=== PATIENT | male | born 1940 | race Caucasian/White ===

== ENCOUNTER 2021-04-22 10:50 | Outpatient (CLI) | payer MEDICARE, OTHER | END 2021-04-22 10:51 | disposition home or self-care (01) | LOC: CSHRAD 10:50 | PROVIDERS: ATTEND Urology | DX: Z00.00 Encounter for general adult medical examination without abnormal findings (principal); Z87.448 Personal history of other diseases of urinary system | CPT/HCPCS: 74018 ==

== ENCOUNTER 2022-10-21 13:04 | Outpatient (CLI) | payer MEDICARE | END 2022-10-21 13:05 | disposition home or self-care (01) | LOC: CSHULT 13:04 | PROVIDERS: ATTEND Urology | DX: N20.0 Calculus of kidney (principal); N40.1 Benign prostatic hyperplasia with lower urinary tract symptoms; N28.1 Cyst of kidney, acquired | CPT/HCPCS: 74018; 76770 ==

== ENCOUNTER 2023-04-05 15:32 | Emergency (ER) | payer MEDICARE | END 2023-04-05 17:36 | disposition home or self-care (01) | LOC: CSHERS 15:32 | DX: I85.01 Esophageal varices with bleeding (principal); N50.89 Other specified disorders of the male genital organs; I48.91 Unspecified atrial fibrillation; E11.9 Type 2 diabetes mellitus without complications; K21.9 Gastro-esophageal reflux disease without esophagitis; E78.5 Hyperlipidemia, unspecified; I10 Essential (primary) hypertension; Z79.01 Long term (current) use of anticoagulants | CPT/HCPCS: 99284 ==

== ENCOUNTER 2023-04-30 09:55 | Emergency (ER) | payer MEDICARE ==
[2023-04-30 11:07] LABS: Bilirubin Neg (Negative); Blood, Urine 25 (Negative); Clarity Clear (Clear); Glucose, Urine (Dipstick) Normal (Negative); Ketone, Urine Negative (Negative); Leukocyte Negative (Negative); Nitrite Negative (Negative); Protein, Urine (Dipstick) 30 mg/dl (Neg-Trace); Urobilinogen Normal mg/dL (Less than 2); pH, Urine 6.5 (5.0-9.0)
[2023-04-30 11:19] LABS: #Basophils 0.1 10x3/uL (0.0-0.2); #Eosinphils 0.2 10x3/uL (0.0-0.5); #Monocytes 0.7 10x3/uL (0.0-1.1); #Neutrophils 5.7 10x3/uL (1.5-8.4); %Basophils 0.8 % (0.0-2.0); %Eosinophils 2.9 % (0.0-6.0); %Monocytes 9.2 % (0.0-10.0); %Neutrophils 71.8 % (40.0-75.0); Hematocrit 45.1 % (38.8-50.0); Hemoglobin 14.5 g/dL (13.5-17.5); Mean Corpuscular HGB CONC 32.2 g/dL (32.0-36.0); Mean Corpuscular Hemoglobin 28.7 pg (27.0-33.0); Mean Corpuscular Volume 89.3 fl (81.2-95.1); Mean Platelet Volume 11.4 fl (7.4-10.4); Platelet Count 207 10x3/uL (150-450); RBC Distribution Width 14.6 % (11.5-14.5); Red Blood Cell (RBC) Count 5.05 10x6/uL (4.32-5.72); White Blood Cell (WBC) Count 7.9 10x3/uL (3.5-10.5)
[2023-04-30 11:32] LABS: CAUTI Indications for Culture Dysuria,urgency,freq; RBC/HPF 0-3 HPF (0-3); WBC/HPF 0-3 HPF (0-3)
[2023-04-30 11:33] LABS: Bacteria/HPF None Seen HPF (None Seen); Squamous Epithelial None Seen HPF (0-3); Urine Culture Reflex No No
[2023-04-30 11:55] LABS: ALT (SGPT) 21 U/L (8-55); AST (SGOT) 22 U/L (5-34); Albumin 4.6 g/dL (3.4-4.8); Alkaline Phosphatase 59 U/L (40-110); Anion Gap 16 mmol/L (10-20); BUN (Urea Nitrogen) 11 mg/dL (8.4-25.7); Bilirubin, Total 1.3 mg/dL (0.2-1.2); Calc. Creatinine Clearance 0 mL/min (70-130); Calcium 9.9 mg/dL (7.8-10.44); Carbon Dioxide 24 mmol/L (23-31); Chloride 101 mmol/L (98-107); Estimated GFR 85; Globulin 2.8 g/dL (2.4-3.5); Glucose 130 mg/dL (83-110); Magnesium 1.9 mg/dL (1.6-2.6); Potassium 3.8 mmol/L (3.5-5.1); Protein, Total 7.4 g/dL (5.8-8.1); Sodium 137 mmol/L (136-145)
== END 2023-04-30 13:24 | disposition home or self-care (01) ==
LOC: CSHERS 09:55
DX: S70.01XA Contusion of right hip, initial encounter (principal); S80.02XA Contusion of left knee, initial encounter; R53.1 Weakness; I48.91 Unspecified atrial fibrillation; E11.9 Type 2 diabetes mellitus without complications; I10 Essential (primary) hypertension; W19.XXXA Unspecified fall, initial encounter
CPT/HCPCS: 72192; 80053; 81001; 83735; 85025

== ENCOUNTER 2024-05-28 13:50 | Emergency (ER) | payer MEDICARE ==
[2024-05-28] MEDS ORDERED: Dexamethasone 10 MG/ML VIAL ONE (14:25)
[2024-05-28] MEDS ORDERED: Lidocaine 4% Patch ONE (14:53)
[2024-05-28] MEDS ORDERED: Morphine 4 MG/ML VIAL ONE (16:25)
== END 2024-05-28 19:11 | disposition home or self-care (01) ==
LOC: CSHERS 13:50
DX: M48.061 Spinal stenosis, lumbar region without neurogenic claudication (principal); I48.91 Unspecified atrial fibrillation; E11.9 Type 2 diabetes mellitus without complications; K21.9 Gastro-esophageal reflux disease without esophagitis; I10 Essential (primary) hypertension
CPT/HCPCS: 72146; 72148; 96374; 99284; J1100; J2272

== ENCOUNTER 2025-07-27 18:51 | Emergency (ER) | payer MEDICARE ==
[2025-07-27 20:22] LABS: ALT (SGPT) 13 U/L (Less than 45); AST (SGOT) 16 U/L (11-34); Albumin 3.9 g/dL (3.1-4.5); Alkaline Phosphatase 40 U/L (40-110); Anion Gap 11 mmol/L (10-20); BUN (Urea Nitrogen) 17 mg/dL (8.4-25.7); Bilirubin, Total 0.5 mg/dL (0.3-1.2); Calc. Creatinine Clearance 0 mL/min (70-130); Calcium 8.9 mg/dL (7.8-10.44); Carbon Dioxide 24 mmol/L (23-31); Chloride 111 mmol/L (98-107); Globulin 1.9 g/dL (2.4-3.5); Glucose 89 mg/dL (83-110); Potassium 4.1 mmol/L (3.5-5.1); Sodium 142 mmol/L (136-145)
[2025-07-27 20:26] LABS: Troponin I 0.021 ng/mL (< 0.028)
[2025-07-27 20:38] LABS: #Basophils 0.03 10x3/uL (0.0-0.2); #Eosinophils 0.11 10x3/uL (0.0-0.5); #Monocytes 0.74 10x3/uL (0.0-1.1); #Neutrophils 2.44 10x3/uL (1.5-8.4); %Basophils 0.7 % (0.0-2.0); %Eosinophils 2.5 % (0.0-6.0); %Lymphocytes 25.5 % (18.0-47.0); %Monocytes 16.6 % (0.0-10.0); %Neutrophils 54.5 % (40.0-75.0); Hematocrit 27.0 % (38.8-50.0); Hemoglobin 7.5 g/dL (13.5-17.5); Mean Corpuscular Hemoglobin 21.9 pg (27.0-33.0); Mean Corpuscular Volume 78.9 fL (81.2-95.1); Platelet Count 196 10x3/uL (150-450); Red Blood Cell (RBC) Count 3.42 10x6/uL (4.32-5.72); White Blood Cell (WBC) Count 4.47 10x3/uL (3.5-10.5)
[2025-07-27] MEDS ORDERED: Furosemide 100 MG (10 mL) VIAL ONE (20:39)
[2025-07-27 21:14] LABS: Anisocytosis SLIGHT = 6-15 cells (100X) (0-5/hpf); Microcytosis MODERATE=15-30 cells (100X) (0-5/hpf)
[2025-07-27 21:16] LABS: Platelet Adequacy Comment Appears Adequate
[2025-07-27] MEDS ORDERED: Pantoprazole 40 MG VIAL ONE (21:24)
[2025-07-27 21:28] LABS: Glucose, Urine (Dipstick) Normal (Negative); Leukocyte Negative (Negative); Protein, Urine (Dipstick) 30 mg/dl (Neg-Trace); Specific Gravity, Urine 1.010 (1.005-1.030)
[2025-07-27 21:50] LABS: Bacteria/HPF Rare-Few HPF (None Seen); CAUTI Indications for Culture Alt mental st,lethar; RBC/HPF 0-3 HPF (0-3); WBC/HPF 0-3 HPF (0-3)
[2025-07-27 21:52] LABS: Urine Culture Reflex No No
[2025-07-27] MEDS ORDERED: Pantoprazole 80 MG, Admixture Fee 1 EACH in Sodium Chloride 0.9% 100 ML IVPB SCH (22:00)
== END 2025-07-27 23:46 | disposition short-term general hospital (02) ==
LOC: CSHERS 18:51
DX: K92.2 Gastrointestinal hemorrhage, unspecified (principal); D64.9 Anemia, unspecified; R00.1 Bradycardia, unspecified; I48.20 Chronic atrial fibrillation, unspecified; R29.700 NIHSS score 0; I25.2 Old myocardial infarction; I50.9 Heart failure, unspecified; E11.9 Type 2 diabetes mellitus without complications; Z87.891 Personal history of nicotine dependence; Z79.82 Long term (current) use of aspirin; Z79.84 Long term (current) use of oral hypoglycemic drugs; Z79.899 Other long term (current) drug therapy
CPT/HCPCS: 36430; 70450; 71045; 74176; 80053; 81001; 83605; 83880; 84484; 85025; 86850; 86900; 86901; 86920; 93005; 94760; 96374; 96375; 99285; J1940; J2470; P9016; 36415